=== PATIENT | male | born 1980 | race Caucasian/White ===

== ENCOUNTER 2021-03-27 15:55 | Emergency (ER) | payer SELFPAY ==
[~2021-03-27] VITALS: Ht 160 cm; Wt 103.0 kg
[2021-03-27 16:00] VITALS: BP 146/110
[2021-03-27] MEDS ORDERED: ASPIRIN 325 MG TAB PO ONE (16:05)
[2021-03-27] MEDS ORDERED: NACL 0.9% 1,000 ML IV ONE (16:05)
[2021-03-27] MEDS ORDERED: MULTIVITAMIN-12 10 ML, THIAMINE 100 MG, MAGNESIUM SULFATE 50% 2,000 MG, FOLIC ACID 1 MG... IV SCH ×10 (16:05→18:00)
--- NOTE | 2021-03-27 16:07 | NUR ---
PATIENT PRESENTS TO ED WITH LEFT SIDED CHEST PAIN X2 DAYS . . DENIES N/V/D; SKIN IS PINK/WARM/DRY; AAOX4 WITH EVEN AND STEADY GAIT; LUNGS CLEAR BL; HR EVEN AND REGULAR; PT DENIES ANY FEVER, SOB, OR COUGH AT THIS TIME; PATIENT STATES PAIN OF 3/10 AT THIS TIME; VSS; PATIENT POSITIONED FOR COMFORT; HOB ELEVATED; BEDRAILS UP X2; BED DOWN. ER MD MADE AWARE OF PT STATUS.
--- NOTE | 2021-03-27 16:11 | NUR ---
BILLING ADJUDICATOR AT PT BEDSIDE.
[2021-03-27 16:30] LABS: BASOPHILS # (AUTO) 0.1 K/uL (0.00-0.22); BASOPHILS % (AUTO) 0.5 % (0.0-2.0); EOSINOPHILS # (AUTO) 0.2 K/uL (0-0.4); EOSINOPHILS % (AUTO) 2.1 % (0.0-4.0); HEMATOCRIT 49.7 % (36-52); LYMPHOCYTES # (AUTO) 1.7 K/uL (2.0-11.5); LYMPHOCYTES % (AUTO) 14.7 % (20.5-51.1); MEAN CORPUSCULAR HEMOGLOBIN 29 pg (27-31); MEAN CORPUSCULAR HGB CONC 34 g/dL (33-37); MEAN CORPUSCULAR VOLUME 84.4 fL (80-94); MONOCYTES # (AUTO) 0.8 K/uL (0.8-1.0); MONOCYTES % (AUTO) 6.9 % (1.7-9.3); NEUTROPHILS # (AUTO) 8.9 K/uL (1.8-7.7); NEUTROPHILS % (AUTO) 75.8 % (42.2-75.2); PLATELET COUNT (AUTO) 167 K/uL (140-450); RED BLOOD CELL COUNT(AUTO) 5.89 MIL/uL (4.20-6.10); RED CELL DISTRIBUTION WIDTH 12.8 % (11.6-13.7); WHITE BLOOD COUNT (AUTO) 11.8 K/uL (4.8-10.8)
--- NOTE | 2021-03-27 16:31 | NUR ---
RELATIONS SPECIALIST AT PT BEDSIDE.
[2021-03-27 16:49] LABS: ALBUMIN 4.3 g/dL (3.4-5.0); ANION GAP 15.8 (8-16); CARBON DIOXIDE 24.4 mmol/L (21-32); CREATININE 0.9 mg/dL (0.6-1.3); POTASSIUM 3.2 mmol/L (3.5-5.1); TOTAL BILIRUBIN 2.6 mg/dL (0.0-1.0)
--- NOTE | 2021-03-27 20:25 | NUR ---
GAVE REPORT TO MELISSA ANDREA. TRANSFER OF CARE AT THIS TIME.
[2021-03-27 21:30] VITALS: BP 125/83
--- NOTE | 2021-03-27 21:30 | NUR ---
Patient discharged with v/s stable. Written and verbal after care instructions given and explained. Patient verbalized understanding. Ambulatory with steady gait. All questions addressed prior to discharge. Advised to follow up with PMD.
--- NOTE | 2021-03-28 11:26 | NUR ---
LATE ENTRY--- MVI IV FLUIDS DISCONTINUED AT 2130 UPON D/C.
== END 2021-03-27 21:30 | disposition home or self-care (01) ==
LOC: MED 15:55
DX: R07.89 Other chest pain (principal); R06.02 Shortness of breath; F17.210 Nicotine dependence, cigarettes, uncomplicated; E66.9 Obesity, unspecified; Z68.41 Body mass index [BMI] 40.0-44.9, adult; Z71.6 Tobacco abuse counseling
CPT/HCPCS: 36415; 71045; 80053; 84484; 85025; 85379; 93005; 96365; 96366; 99285; A9153; J3411; J3475; J3490; J7030